=== PATIENT | female | born 1980 | race Caucasian/White ===

== ENCOUNTER 2016-12-20 06:49 | Day surgery (SDC) | payer OTHER ==
[~2016-12-20] VITALS: Ht 160 cm; Wt 112.0 kg
[2016-12-20] VITALS (16 sets, daily range): BP systolic 100–157; BP diastolic 54–93; PULSE 50–78; RESP 18–28; Ht 160 cm; Wt 112.0 kg
[~2016-12-20 06:49] MED LIST: FERR240T9; PREN1TAB82
[2016-12-20] MEDS ORDERED: CEFAZOLIN 1 GM/50 ML (PMX) 50 ML IVPB ONE ×2 (08:00→08:32)
[2016-12-20] MEDS ORDERED: SOD CHLORIDE 0.9% 1,000 ML IV SCH (08:00)
[2016-12-20] MEDS ORDERED: POLYMYXIN/BACITRACIN 1L IRRIG IRR ONE (08:00)
[2016-12-20] MEDS ORDERED: HEPARIN 1000 UNITS/ML 10 ML INJ ONE (08:33)
[2016-12-20] MEDS ORDERED: LIDOCAINE 1%/EPI 30 ML INJ INJ SCH (09:00)
[2016-12-20] MEDS ORDERED: DIPHENHYDRAMINE 50 MG INJ ONE (09:27)
[2016-12-20] MEDS ORDERED: MIDAZOLAM 1 MG/ML 2 ML INJ ONE (09:27)
[2016-12-20] MEDS ORDERED: FENTAnyl 50 MCG/ML VIAL ONE (09:27)
--- NOTE | 2016-12-20 11:03 | RADRPT ---
PROCEDURE: FLUOROSCOPIC AND ULTRASONOGRAPHIC-GUIDED PLACEMENT OF LEFT CHEST PORT. CLINICAL INDICATION: History of right breast cancer. Venous access for chemotherapy. TECHNIQUE: INTRAPROCEDURE MEDICATIONS: PB antibiotic solution 40 cc applied topically. 1 gram Ancef intravenous ly, intra-op. IV Versed and Fentanyl per protocol. TECHNIQUE: Informed consent was obtained. The procedure, risks, benefits, complications and alternat cassie were explained to the patient. Risks including bleeding, infection, and pneumothorax were expl ained. The patient understood and was willing to proceed. A procedural pause was performed. The patient's name, date of , and procedure to be performed w ere verified. The central line was inserted with all elements of maximal sterile barrier technique. All of the fol lowing were used: head covering, facial mask, sterile gown, sterile gloves, a large sterile sheet, h and hygiene, and 2% chlorhexidine for cutaneous antisepsis. The left neck and anterior/superior chest wall were prepped and draped in usual sterile fashion. Limited sonography of the left neck was then performed. Noted is a patent left internal jugular vein . Following the local injection of 1% lidocaine, the left internal jugular vein was punctured under so nographic guidance with a 20-gauge needle through which a 0.018 inch floppy tip guidewire was advanc ed into the superior vena cava with fluoroscopic guidance. The tract was dilated to 5 [place] and t he wire was then replaced with a 0.035 in Glidewire. Serial dilatation was then performed and a 7 F rench peel away sheath was introduced. A site just inferior to the clavicle in the superior anterior left chest wall was localized. One per cent lidocaine was used as local anesthesia. A transverse 3 cm incision was made utilizing a 15 blad e scalpel. Utilizing blunt dissection a subcutaneous pocket was created inferior to the incision. Th e cavity was flushed with approximately 40 cc of PB antibiotic solution. The catheter was tunneled underneath the skin from the newly created pocket to the puncture site in the neck. The central line catheter was pulled through the tract. The catheter was then advanced thr ough the sheath until the tip was positioned in the right atrium. The peel-away sheath was removed. The catheter was flushed and clamped. The catheter was then connected to the 6.6 [place] [employer] power port. The port was then placed into the pocket. Prior to closing the instrument and sponge count was verified and was correct. The subcutaneous tissue was closed with 3-0 Vicryl interrupted suture. The skin at the site of the pock et and in the neck was closed with 4-0 Vicryl suture in a running subcuticular technique. The port w as flushed with 2000 units of heparin in 2 cc utilizing a Cuello needle. The needle was removed. A dr essing was applied. The patient tolerated procedure well. COMPARISON: None. FINDINGS: Ultrasound images were recorded and stored in the patient's medical record. Final radiographic images demonstrate the tip of the catheter in the upper right atrium. A total of 0.5 minutes of fluoroscopy time was used. The ultrasound images demonstrate the needle entering th e jugular vein. IMPRESSION: 1. Successful ultrasonographic and fluoroscopic guided placement of left chest port. RPTAT: QQ .Santiago Hayward MD, MD Date Time Electronically viewed and signed by .Santiago Hayward MD, on 12/20/2016 11:03 .R/
--- NOTE | 2016-12-20 11:04 | RADRPT ---
PROCEDURE: Ultrasound guidance for placement of needle in left internal jugular vein. CLINICAL INDICATION: Venous access. TECHNIQUE: Prior to the procedure, informed consent was obtained. Risks including bleeding, infection, and pneu mothorax were explained to the patient. The patient understood and was willing to proceed. A procedu ral pause was performed. The patient's name, date of , and procedure to be performed were verif ied. The central line was inserted with all elements of maximal sterile barrier technique. All of th e following were used: head covering, facial mask, sterile gown, sterile gloves, a large sterile she et, hand hygiene, and 2% chlorhexidine for cutaneous antisepsis. The left neck and anterior/superi or chest wall was prepped and draped in usual sterile fashion. Limited sonography of the left neck was then performed. Noted is a patent left internal jugular vein . Ultrasound images were recorded and stored in the patient's medical record. Following the local injection of Xylocaine, the left internal jugular vein was punctured under sonog raphic guidance with a 20-gauge needle through which a 0.018 inch floppy tip guidewire was advanced into the superior vena cava. The patient tolerated the procedure well. The remainder of the proced ure was performed and dictated under separate cover. COMPARISON: None. FINDINGS: The ultrasound images demonstrate a patent left internal jugular vein. The subsequent images demons trate the needle entering the left internal jugular vein. IMPRESSION: 1. Ultrasound guidance for a needle placement in left internal jugular vein. RPTAT: QQ .Santiago Hayward MD, Date Time Electronically viewed and signed by .Santiago Hayward MD, on 12/20/2016 11:03 .R/
[2016-12-21] MEDS ORDERED: FURO-110 PO (19:51)
== END 2016-12-20 13:03 | disposition home or self-care (01) ==
LOC: SDS 06:49
PROVIDERS: ATTEND Internal Medicine Hematology & Oncology
DX: C50.911 Malignant neoplasm of unspecified site of right female breast (principal)
CPT/HCPCS: 36561; 76942; C1788; J0690; J1200; J1644; J2250; J3010; Z7610

== ENCOUNTER 2016-12-21 16:17 | Emergency (ER) | payer OTHER ==
[~2016-12-21] VITALS: Ht 162.6 cm; Wt 70.0 kg
[2016-12-21 16:35] VITALS: Ht 162.6 cm; Wt 70.0 kg
[2016-12-21 17:57] LABS: HEMATOCRIT 39.6 % (37.0-47.0); HEMOGLOBIN 13.6 g/dl (12.0-16.0); MEAN CORPUSCULAR HEMOGLOBIN 28.9 pg (29.0-33.0); MEAN CORPUSCULAR HGB CONC 34.2 g/dl (32.0-37.0); MEAN CORPUSCULAR VOLUME 84.5 fl (82.0-101.0); PLATELET COUNT 252 10^3/UL (140-440); RED BLOOD COUNT 4.69 10^6/ul (4.20-5.40); UNCORRECTED WBC 19.5 10^3/ul (4.8-10.8); WHITE BLOOD COUNT 19.5 10^3/ul (4.8-10.8)
[2016-12-21 17:59] LABS: CONDITION 1; LH ANALYZER COMMENTS 1; SUSPECT 1
[2016-12-21 18:19] LABS: LYMPHOCYTES # 0.2 10^3/ul (0.8-2.9); MONOCYTE # 0.2 10^3/ul (0.3-0.9); NEUTROPHIL # 18.7 10^3/ul (1.6-7.5)
[2016-12-21 18:21] LABS: PLATELET ESTIMATE PLT APPEAR ADEQUATE
[2016-12-21 18:22] LABS: POTASSIUM 3.9 mmol/L (3.5-5.1)
--- NOTE | 2016-12-21 18:24 | RADRPT ---
PROCEDURE: XR Chest. CLINICAL INDICATION: Chest pain TECHNIQUE: Chest AP portable. COMPARISON: 05/08/2013 FINDINGS: Left-sided Port-A-Cath. The mediastinal structures are unremarkable. There is mild cardiomegaly. There is pulmonary venous hypertension. The lung pérez are unremarkable. No consolidation is identified. The pleural spac es are unremarkable. The axial skeleton is unremarkable. IMPRESSION: Mild cardiomegaly Pulmonary venous hypertension RPTAT: HGDB .Ric Joshi MD, MD Date Time Electronically viewed and signed by .Ric Joshi MD, MD on 12/21/2016 18:24 .B/
[2016-12-21 18:25] LABS: CREATININE 0.45 mg/dl (0.44-1.00)
[2016-12-21 18:26] LABS: CALCIUM 8.5 mg/dl (8.4-10.2)
[2016-12-21] MEDS ORDERED: ONDANSETRON 4 MG INJ IV STA (18:32)
[2016-12-21 18:37] LABS: TROPONIN-I 0.013 ng/ml (0.00-0.12)
[2016-12-21] MEDS ORDERED: FUROSEMIDE 40 MG INJ IV STA (19:49)
[2016-12-21] MEDS ORDERED: FURO-110 PO (19:51)
[2016-12-21 20:07] VITALS: BP 101/63; PULSE 73; RESP 18
--- NOTE | 2016-12-21 22:01 | ERD ---
ER Documentation Chief Complaint Date/Time DATE: 12/21/16 TIME: 21:28 Chief Complaint allergic reaction after chemotherapy HPI 36-year-old female with a recent diagnosis of right breast cancer not amenable to surgery on chemotherapy presenting after her first round of chemo with possible reaction to the medication. The patient was sent by Dr. Judd, her oncologist. Her chemo regimen is a 2 chemo drug and 2 protein regimen. Per the patient she received entire infusion. After the infusion, she had flushing, chills, pressure in her chest, and felt like her feet were swelling. During the treatment, she was doing fine. She denies any associated fever. She received IV steroids, Benadryl, Demerol there and was sent to the ER for evaluation. Currently she denies any chest pain or shortness of breath. She denies any throat swelling. She feels some chills occasionally. ROS All systems reviewed and are negative except as per history of present illness. Medications Home Meds Active Scripts Furosemide* (Lasix*) 20 Mg Tablet, 20 MG PO DAILY, #3 TAB Prov:KIP RICHARDSON MD 12/21/16 Discontinued Reported Medications [None] No Conflict Check 04/20/15 Ferrous Gluconate (Iron) 1 Tab Tablet 08/20/10 Vit/Fe Fumarate/Fa ( Vitamin Tablet) 1 Tab Tablet 08/20/10 Allergies Allergies: Coded Allergies: hydrocodone (Verified Allergy, Severe, 12/21/16) PMhx/Soc History of Surgery: Yes (CHOLECYSTECTOMY, CSECTION X4) Anesthesia Reaction: No Hx Neurological Disorder: No Hx Respiratory Disorders: No Hx Cardiac Disorders: No Hx Psychiatric Problems: No Hx Miscellaneous Medical Probl: Yes (BREAST CA, OBESITY) Hx Alcohol Use: No Hx Substance Use: No Hx Tobacco Use: No Smoking Status: Unknown if ever smoked FmHx Family History: No diabetes Physical Exam Vitals Vital Signs Date Time Temp Pulse Resp B/P Pulse Ox O2 Delivery O2 Flow Rate FiO2 12/21/16 20:07 73 18 101/63 95 Room Air 12/21/16 16:35 97.8 84 20 140/74 94 Physical Exam Const: No apparent distress, nontoxic Head: Atraumatic Eyes: Normal Conjunctiva ENT: Normal External Ears, Nose and Mouth. No oropharyngeal swelling Neck: Full range of motion. No meningismus. No JVD Resp: Clear to auscultation bilaterally, no wheezing Cardio: Regular rate and rhythm, no murmurs Abd: Soft, non tender, non distended. Normal bowel sounds Skin: No petechiae or rashes Back: No midline or flank tenderness Ext: No cyanosis, mild swelling on the dorsum of the feet, nonpitting Neur: Awake and alert and oriented 3, strength and sensations intact in all 4 extremities, no facial asymmetry Psych: Normal Mood and Affect Result Diagram: 12/21/16174412/21/161744 Results 24 hrs Laboratory Tests Test 12/21/16 17:45 Anion Gap 18 Band Neutrophils % 2.0% Blood Morphology Comment Blood Urea Nitrogen 8mg/dl Calcium Level 8.5mg/dl Carbon Dioxide Level 22mmol/L Chloride Level 102mmol/L Creatinine 0.45mg/dl Glucose Level 199mg/dl Hematocrit 39.6% Hemoglobin 13.6g/dl Lymphocytes # 0.210^3/ul Lymphocytes % 1.0% Macrocytosis OCCASIONAL Mean Corpuscular Hemoglobin 28.9pg Mean Corpuscular Hemoglobin Concent 34.2g/dl Mean Corpuscular Volume 84.5fl Mean Platelet Volume 9.0fl Monocytes # 0.210^3/ul Monocytes % 1.0% Neutrophils # 18.710^3/ul Neutrophils % 96.0% Platelet Count 72304^3/UL Platelet Estimate PLT APPEAR ADEQUATE Potassium Level 3.9mmol/L Red Blood Count 4.6910^6/ul Red Cell Distribution Width 13.0% Sodium Level 138mmol/L Troponin I 0.013ng/ml White Blood Count 19.510^3/ul Current Medications Medications (Trade) Dose Ordered Sig/Shay Route PRN Reason Start Time Stop Time Status Last Admin Dose Admin Ondansetron HCl (Zofran Inj) 4 mg ONCE STAT IV 12/21/16 18:32 12/21/16 18:33 DC 12/21/16 18:58 Furosemide (Lasix) 20 mg ONCE STAT IV 12/21/16 19:49 12/21/16 19:50 DC 12/21/16 20:09 Procedures/MDM EKG: Rate/Rhythm: Normal Sinus Rhythm QRS, ST, T-waves: Nonspecific T-wave changes in the anterior leads, no evidence of acute ischemia Impression: No evidence of ischemia or arrhythmia Patient is presenting after reaction to her chemo medication. I spoke with her oncologist,Dr. Judd, who recommended some basic blood work and cardiac workup. On my exam there is no evidence of heart failure. I do not suspect anaphylaxis. Labs are only notable for leukocytosis, which her oncologist stated is expected after her initial chemotherapy session. Otherwise her EKG showed nonspecific changes and her troponin was within normal limits. Her x- ray showed evidence of some pulmonary vascular congestion, which she thinks is likely secondary to all the fluid she received with her chemo today. He recommended 1 dose of IV Lasix here and 2 more days of oral Lasix at home. She will follow up with the patient in 2 days in his clinic. Return precautions were given to the patient. She feels comfortable going home at this time and she feels comfortable with the plan. She will return for any worsening symptoms. Departure Diagnosis: Primary Impression: Adverse reaction to drug Encounter type: initial encounter Qualified Code: T88.7XXA - Adverse reaction to drug, initial encounter Condition: Stable Patient Instructions: Drug Reaction, Other Referrals: IGOR JUDD Additional Instructions: See Dr. Judd on Monday. Return to the ER for any worsening symptoms. KIP RICHARDSON MD Dec 21, 2016 21:43
== END 2016-12-21 20:15 | disposition home or self-care (01) ==
LOC: E/R 16:17
DX: R07.89 Other chest pain (principal); R40.2252 Coma scale, best verbal response, oriented, at arrival to emergency department; C50.911 Malignant neoplasm of unspecified site of right female breast; R40.2362 Coma scale, best motor response, obeys commands, at arrival to emergency department; R40.2142 Coma scale, eyes open, spontaneous, at arrival to emergency department
CPT/HCPCS: 36415; 71010; 80048; 84484; 85025; 93005; 96374; 96375; J1940; J2405; Z7502

== ENCOUNTER → 2017-01-27 | Outpatient (CLI) | payer OTHER ==
[~2017-01-27] MED LIST changes: -FERR240T9; +FURO-110 PO; -PREN1TAB82
--- NOTE | 2017-01-27 14:42 | RADRPT ---
Echocardiogram Report Patient Name: JEAN PIERRE ARMIJO Gender: Female Date: 1980 Study Date: 27-Jan-2017 Traffic Engineer: Jesse Mejia RDCS Location: Op Ref. Physician: IGOR JUDD Quality: Good Procedures: Transthoracic echocardiogram with complete 2D, M-Mode, and doppler examination. Indications: Evaluate Left Ventricular function. 2D/M Mode Doppler Measurement Value Normal Ranges Measurement Value Normal Ranges LVIDd 2D 5.3 3.5 - 5.6 cm AV Peak Sd 1.7 m/sec LVIDs 2D 2.9 2.1 - 4.1 cm AV Peak PG 11.3 mmHg LVPWd 2D 0.9 0.6 - 1.1 cm LVOT Peak Sd 1.2 m/sec IVSd 2D 1.0 0.6 - 1.1 cm LVOT Peak PG 5.6 mmHg AoR Diam 2D 2.5 2.0 - 3.7 cm MV E Peak Sd 0.9 m/sec EDV 2D 137.6 cm3 MV A Peak Sd 0.5 m/sec ESV 2D 24.6 cm3 MV E/A 1.7 LA Dimen 2D 3.4 2.3 - 4.0 cm MV Decel Time 266 msec MV Decel Morton 3 MV E/A 1.7 Findings Left Ventricle: Normal left ventricular systolic function. Normal left ventricular cavity size. Normal left ventricular wall thickness. Ejection fraction is visually estimated at 5560 %. Right Ventricle: Normal right ventricular size. Normal right ventricular systolic function. Left Atrium: The left atrium is normal in size. Right Atrium: The right atrium is normal in size. Mitral Valve: Normal appearance and function of the mitral valve with trace physiologic regurgitation. Aortic Valve: Normal appearance of the aortic valve. No significant aortic stenosis or insufficiency. Tricuspid Valve: Normal appearance and function of the tricuspid valve with trace physiologic regurgitation. Normal right ventricular systolic pressure. Pulmonic Valve: Normal pulmonic valve appearance. Pericardium: Normal pericardium with no significant pericardial effusion. Aorta: Normal aortic root. IVC: Normal size and normal respiratory collapse consistent with normal right atrial pressure. Conclusions 1.Normal left ventricular systolic function. Normal left ventricular cavity size. Normal left ventricular wall thickness. Ejection fraction is visually estimated at 55-60 %. 2.Normal appearance and function of the mitral valve with trace physiologic regurgitation. 3.Normal appearance and function of the tricuspid valve with trace physiologic regurgitation. Normal right ventricular systolic pressure. Electronically Signed By: He Bedolla 27-Jan-2017 14:41:37 -0800 Patient Name: JEAN PIERRE ARMIJO Study Date: 27-Jan-[id number]
== END | disposition home or self-care (01) ==
LOC: EKG 10:13
PROVIDERS: ATTEND Internal Medicine Hematology & Oncology
DX: C50.919 Malignant neoplasm of unspecified site of unspecified female breast (principal)
CPT/HCPCS: 93306

== ENCOUNTER 2017-05-08 14:56 | Outpatient (CLI) | payer OTHER ==
[~2017-05-08] VITALS: Ht 160 cm; Wt 99.1 kg
[2017-05-08 15:07] VITALS: BP 109/69; PULSE 61; RESP 18; Ht 160 cm; Wt 99.1 kg
--- NOTE | 2017-05-08 15:32 | PN ---
Date/Time of Note Date/Time of Note DATE: 05/08/17 TIME: 15:27 Outpatient Progress Note Chief Complaint Acute diverticulosis/CA breast/leukopenia HPI Acute diverticulosis/patient was recently hospitalized with acute diverticulosis , patient still has a pain in left upper quadrant, no fever chill, no blood in the stool, no mucus, patient's pain moderately severe, sometime 8 or 9 out of 10 , CA breast/patient has CA breast, patient getting chemotherapy, patient chemotherapy recently, Leukopenia/patient has leukopenia, patient was recently hospitalized, no rash, no fever or chill, Review of Systems Const: No Fever, no chills, no Wt. loss, no Fatigue, normal appetite, no diaphoresis., Eyes: No pain, no discharge, no redness, no visual change, no foreign body. ENT: No pain, no bleeding, no congestion, no sore throat, no dysphagia, no discharge or rhinitis. Lymph: No adenopathy, no tender nodes, no lymphedema. Resp: No SOB, no cough, no sputum, no wheezing, no chest pain. CV: No chest pain, no palpitaions, no MILES, no PND, no edema. GI: Normal appetite, left upper quadrant pain, no nausea, no vomiting, no diarrhea, no blood, no constipation. : No frequency, no urgency, no dysuria, no hematuria, no flank pain, no discharge, no bleeding. Musc: No bone/joint pain, no back pain, no neck pain, no knee pain, no restricted ROM. Skin: No rash, no skin lesions, no erythema, no laceration, no bruising, no pruritus. Alopecia secondary to chemotherapy, Neuro: No REZA, no dizziness, no syncope, no seizure, no focal-weakness. Endo: No polyuria, no polydypsia, no dry-skin, no temp-intolerance. Psych: No hallucinations, no depression, no anxiety, no suicidal ideation. Ext: No edema, no pain, no ulcer, no weakness. Physical Exam General Appearance: A 36 year-old female who appears well-developed, well- nourished, in no acute distress slightly obese,. HEENT: Head normocephalic, atraumatic. Pupils equal, round, reactive to light and accommodate. Sclerae are no jaundice. Nasal turbinates pink without erythema or nasal discharge. Mucous membranes pink and moist without lesions. Oropharynx clear without any exudate or discharge. NECK: Supple. Trachea midline, No thyromegaly, No cervical lymphadenopathy, No mass, No carotid bruits, No JVD, Carotid pulses 2+ bilaterally. PULMONARY: Clear to auscultaion bilaterally, No retractions, Chest expansion symmetric bilaterally, no rales, no ronchi, no dulness on percussion. CARDIAC: Normal SI and S2, Regular rate and rythm, no murmur, gallop, or rub. GASTROINTESTINAL: Abdomen is soft, left upper quadrant tenderness,, Non Rigid, No distention, Positive bowel sounds x4 quadrants, Liver normal. SKIN: Warm, dry, no rash, no bruise, no echmosis alopecia head secondary to chemotherapy, EXTREMITIES: Bilateral lower extremities normal, no edema, no phlabitus, pulse palpable, no contracture. MUSCULOSKELETAL: Spine Normal, Non-tender, Normal range of motion, No swelling, no deformity, no clubbing, or cyanosis, the patient has no edema to bilateral lower extremities, dorsalis pedis pulses palpable bilaterally. NEUROLOGIC: The patient is awake, alert, oriented, responding to yes/no questions appropriately, moving all extremities, cranial nerve intact, normal strenght, normal power, normal coordination, normal gait. Allergies Coded Allergies: hydrocodone (Verified Allergy, Severe, 12/21/16) PMH CA breast,/diverticulosis/depression/leukopenia Social Hx Noncontributory Family Hx Noncontributory Assessment/Plan Impression Acute diverticulosis/CA breast/leukopenia/history of depression Plan Patient has nausea off and on, patient has medication, patient better with the medication, patient still has abdominal pain, pain score 8 or 9 out of 10, [place] 5/325 #41 p.o. 3 times daily as needed for pain, Patient encouraged to follow with the primary care physician and oncologist, Patient education done, Medications Home Meds Active Scripts Furosemide* (Lasix*) 20 Mg Tablet, 20 MG PO DAILY, #3 TAB Prov:KIP RICHARDSON MD 12/21/16 FAY MOREIRA MD May 08, 2017 15:32
[2017-05-08] MEDS ORDERED: PROC10TA10 PO (15:52)
[2017-05-08] MEDS ORDERED: METR500T PO (15:52)
== END 2017-05-08 16:23 | disposition home or self-care (01) ==
LOC: DCC 14:56
PROVIDERS: ATTEND Internal Medicine
DX: K57.30 Diverticulosis of large intestine without perforation or abscess without bleeding (principal); C50.919 Malignant neoplasm of unspecified site of unspecified female breast

== ENCOUNTER 2017-05-25 11:43 | Outpatient (CLI) | payer OTHER ==
[~2017-05-25] VITALS: Ht 160 cm; Wt 99.8 kg
[~2017-05-25 11:43] MED LIST changes: -FURO-110 PO; +METR500T PO; +PROC10TA10 PO
[2017-05-25 11:51] VITALS: BP 104/55; PULSE 56; RESP 18; Ht 160 cm; Wt 99.8 kg
--- NOTE | 2017-05-25 12:17 | PN ---
Date/Time of Note Date/Time of Note DATE: 05/25/17 TIME: 12:14 Outpatient Progress Note Chief Complaint Abdominal pain/CA breast/ HPI Abdominal discomfort/patient had acute diverticulosis, patient was treated in the hospital, patient pain improved significantly, right now patient has minimal discomfort, patient did have pain yesterday, patient took Tylenol and Motrin, patient felt better, CA breast/patient had severe breast, patient is getting chemotherapy, no fever chill, no bruises, ecchymosis, Review of Systems Const: No Fever, no chills, no Wt. loss, no Fatigue, normal appetite, no diaphoresis. Eyes: No pain, no discharge, no redness, no visual change, no foreign body. ENT: No pain, no bleeding, no congestion, no sore throat, no dysphagia, no discharge or rhinitis. Lymph: No adenopathy, no tender nodes, no lymphedema. Resp: No SOB, no cough, no sputum, no wheezing, no chest pain. CV: No chest pain, no palpitaions, no MILES, no PND, no edema. GI: Normal appetite, minimal abdominal pain, no nausea, no vomiting, no diarrhea , no blood, no constipation. No abdominal distention, : No frequency, no urgency, no dysuria, no hematuria, no flank pain, no discharge, no bleeding. Musc: No bone/joint pain, no back pain, no neck pain, no knee pain, no restricted ROM. Skin: No rash, no skin lesions, no erythema, no laceration, no bruising, no pruritus alopecia,. Neuro: No REZA, no dizziness, no syncope, no seizure, no focal-weakness. Endo: No polyuria, no polydypsia, no dry-skin, no temp-intolerance. Psych: No hallucinations, no depression, no anxiety, no suicidal ideation. Ext: No edema, no pain, no ulcer, no weakness. Physical Exam Vital Signs Date Time Temp Pulse Resp B/P Pulse Ox O2 Delivery O2 Flow Rate FiO2 05/25/17 11:51 98.0 56 18 104/55 93 Room Air General Appearance: A 36 year-old female who appears well-developed, well- nourished, in no acute distress. HEENT: Head normocephalic, atraumatic. Pupils equal, round, reactive to light and accommodate. Sclerae are no jaundice. Nasal turbinates pink without erythema or nasal discharge. Mucous membranes pink and moist without lesions. Oropharynx clear without any exudate or discharge. NECK: Supple. Trachea midline, No thyromegaly, No cervical lymphadenopathy, No mass, No carotid bruits, No JVD, Carotid pulses 2+ bilaterally. PULMONARY: Clear to auscultaion bilaterally, No retractions, Chest expansion symmetric bilaterally, no rales, no ronchi, no dulness on percussion. CARDIAC: Normal SI and S2, Regular rate and rythm, no murmur, gallop, or rub. GASTROINTESTINAL: Abdomen is soft, non-tender patient did have some discomfort yesterday, at present no tenderness,, Non Rigid, No distention, Positive bowel sounds x4 quadrants, Liver normal. SKIN: Warm, dry, no rash, no bruise, no echmosis. Alopecia on the head secondary to chemotherapy, EXTREMITIES: Bilateral lower extremities normal, no edema, no phlabitus, pulse palpable, no contracture. MUSCULOSKELETAL: Spine Normal, Non-tender, Normal range of motion, No swelling, no deformity, no clubbing, or cyanosis, the patient has no edema to bilateral lower extremities, dorsalis pedis pulses palpable bilaterally. NEUROLOGIC: The patient is awake, alert, oriented, responding to yes/no questions appropriately, moving all extremities, cranial nerve intact, normal strenght, normal power, normal coordination, normal gait. Allergies Coded Allergies: hydrocodone (Verified Allergy, Severe, 12/21/16) PMH No change Social Hx No change Family Hx No change Assessment/Plan Impression Abdominal discomfort secondary diverticulosis improved/CA breast Plan Patient had a chemotherapy yesterday, patient did have abdominal discomfort yesterday, patient did take Tylenol and Motrin and patient had a relief, Patient allergic to hy hydrocodone patient did not refill the prescription, Patient encouraged to follow with the oncologist and primary care physician, and if any fever to let them know, Medications Home Meds Discontinued Reported Medications Prochlorperazine* (Prochlorperazine*) 10 Mg Tablet, 10 MG PO Q6H Y for NAUSEA, TAB 05/08/17 Metronidazole* (Flagyl*) 500 Mg Tablet, 500 MG PO TID, TAB 05/08/17 FAY MOREIRA MD May 25, 2017 12:17
== END 2017-05-25 17:00 | disposition home or self-care (01) ==
LOC: DCC 11:43
PROVIDERS: ATTEND Internal Medicine
DX: R10.9 Unspecified abdominal pain (principal); K57.90 Diverticulosis of intestine, part unspecified, without perforation or abscess without bleeding; C50.919 Malignant neoplasm of unspecified site of unspecified female breast; Z79.899 Other long term (current) drug therapy

== ENCOUNTER 2017-07-28 10:32 | Inpatient (IN) | payer OTHER ==
[~2017-07-28] VITALS: Ht 160 cm; Wt 100.4 kg
[2017-07-28] VITALS (21 sets, daily range): BP systolic 96–140; BP diastolic 46–78; PULSE 55–89; RESP 13–23; Ht 160 cm; Wt 100.4 kg
[~2017-07-28 10:32] MED LIST changes: +CEFAZOLIN 2 GM/50 ML (PMX) 50 ML IVPB SCH; -METR500T PO; -PROC10TA10 PO; +SOD CHLORIDE 0.9% 1,000 ML IV SCH
[2017-07-28 13:23] LABS: BASOPHILS % 0.3 % (0.0-2.0); EOSINOPHILS # 0.1 10^3/ul (0.0-0.5); EOSINOPHILS % 0.8 % (0.0-7.0); HEMATOCRIT 35.4 % (37.0-47.0); LYMPHOCYTES # 2.5 10^3/ul (0.8-2.9); LYMPHOCYTES % 38.9 % (15.0-51.0); MEAN CORPUSCULAR HEMOGLOBIN 28.8 pg (29.0-33.0); MEAN CORPUSCULAR HGB CONC 33.9 g/dl (32.0-37.0); MEAN CORPUSCULAR VOLUME 85.1 fl (82.0-101.0); MEAN PLATELET VOLUME 10.7 fl (7.4-10.4); MONOCYTE # 0.3 10^3/ul (0.3-0.9); MONOCYTES % 4.6 % (0.0-11.0); NEUTROPHILS % 55.2 % (39.0-77.0); PLATELET COUNT 217 10^3/UL (140-415); RED BLOOD COUNT 4.16 10^6/ul (4.20-5.40); RED CELL DISTRIBUTION WIDTH 13.8 % (11.5-14.5); WHITE BLOOD COUNT 6.4 10^3/ul (4.8-10.8)
[2017-07-28 13:49] LABS: INR 1.01; PROTIME 13.3 Sec (12.2-14.2)
[2017-07-28 13:50] LABS: PARTIAL THROMBOPLASTIN TIME 30.8 Sec (25.0-35.0)
[2017-07-28 13:53] LABS: ALBUMIN 4.2 g/dl (3.3-4.9); ALBUMIN/GLOBULIN RATIO 1.2; BILIRUBIN,INDIRECT 0.8 mg/dl (0-1.1); BILIRUBIN,TOTAL 0.8 mg/dl (0.2-1.3); TOTAL PROTEIN 7.7 g/dl (6.1-8.1)
[2017-07-28 13:57] LABS: CREATININE 0.55 mg/dl (0.44-1.00)
[2017-07-28] MEDS ORDERED: PROPOFOL 40 ML ONE (14:48)
[2017-07-28] MEDS ORDERED: ONDANSETRON 4 MG INJ ONE ×2 (15:09→16:32)
[2017-07-28] MEDS ORDERED: CEFAZOLIN 1 GM INJ ONE (15:09)
[2017-07-28] MEDS ORDERED: DEXAMETHASONE 4 MG/ML 1 ML INJ ONE (15:09)
[2017-07-28] MEDS ORDERED: PROPOFOL 20 ML ONE ×2 (16:03)
[2017-07-28] MEDS ORDERED: LIDOCAINE 2% (SDV) 5 ML INJ ONE (16:03)
[2017-07-28] MEDS ORDERED: hydrALAzine 20 MG INJ IV PRN (16:30)
[2017-07-28] MEDS ORDERED: LABETALOL HCL 20MG INJ IV PRN (16:30)
[2017-07-28] MEDS ORDERED: DIPHENHYDRAMINE 50 MG INJ IV PRN (16:30)
[2017-07-28] MEDS ORDERED: ONDANSETRON 4 MG INJ IV PRN ×2 (16:30→17:00)
[2017-07-28] MEDS ORDERED: HYDROmorphONE (0.2 MG/ML) 10ML SYG IV PRN ×2 (16:30)
[2017-07-28] MEDS ORDERED: OXYCODONE/ACETAMINOPHEN (5/325) TAB PO PRN ×2 (16:30)
[2017-07-28] MEDS ORDERED: FENTAnyl 50 MCG/ML VIAL IV PRN ×3 (16:30)
[2017-07-28] MEDS ORDERED: METOCLOPRAMIDE 10 MG INJ IV PRN (16:30)
[2017-07-28] MEDS ORDERED: KETOROLAC 30 MG INJ IV PRN ×2 (16:30→23:30)
[2017-07-28] MEDS ORDERED: EPHEDrine SULFATE 50 MG/5 ML SYG IV PRN (16:30)
[2017-07-28] MEDS ORDERED: MEPERIDINE 25 MG INJ IV PRN (16:30)
[2017-07-28] MEDS ORDERED: HYDROmorphONE (0.2 MG/ML) 10ML SYG IV ONE (16:32)
--- NOTE | 2017-07-28 16:37 | SIPON ---
Date/Time of Note Date/Time of Note DATE: 07/28/17 TIME: 16:36 Operative Report Preoperative Diagnosis Right breast cancer Postoperative Diagnosis Same Operation/Procedure Performed Right modified radical mastectomy Surgeon: DENNIS BUTTERFIELD MD ex assistant/program director: LADARIUS PAVON MD Anesthesia Type: general Estimated Blood Loss: 10 - 50 ml's Transfusion Required: no Specimens Right breast and axillary contents Grafts/Implants: none Complications: no DENNIS BUTTERFIELD MD Jul 28, 2017 16:37
[2017-07-28] MEDS: HYDROmorphONE (0.2 MG/ML) 10ML SYG IV PRN ×2 (16:52→18:04)
[2017-07-28] MEDS ORDERED: ACETAMINOPHEN 1000MG/100ML IV 100 ML IVPB PRN (17:00)
--- NOTE | 2017-07-28 18:43 | OPR ---
DATE OF OPERATION: 07/28/2017 PREOPERATIVE DIAGNOSIS: Locally advanced invasive cancer of the right breast. POSTOPERATIVE DIAGNOSIS: Locally advanced invasive cancer of the right breast. OPERATION PERFORMED: Right modified radical mastectomy. ANESTHESIA: General. ANESTHESIOLOGIST: Dr. Guzman. SURGEON: Dr. Brian Augustine. SPOOL FIXER: Dr. Sandoval. INDICATIONS FOR PROCEDURE: Patient is a very unfortunate 36-year- old female, who presented with greater in 2 cm invasive cancer of her right breast. She was HER-2 AMOL positive. She was therefore counseled as to the benefit of neoadjuvant chemotherapy. She completed her neoadjuvant chemotherapy and evaluated with a post treatment mammogram not mammogram was reviewed with attending radiologist Dr. Mateus Sarmiento is appeared to be significant residual calcifications a very large scan and he recommended modified radical mastectomy. The patient was counseled in that fashion. She agreed and consented and was scheduled for surgery. OPERATIVE PROCEDURE: Patient was brought to the operating theater where she was placed under general endotracheal tube anesthesia. The right breast and axillary region were prepped and draped in usual sterile fashion. A planned elliptical incision was demarcated with marking pen around the nipple areolar complex including portion of the skin overlying the breast. It was carried out with 15 blade scalpel. Subcutaneous tissue was then dissected with cautery. The skin edges were elevated with skin hooks and skin flaps were then created with cautery, first superiorly to the clavicle, then medially to the sternal border, inferiorly to the inframammary fold and laterally to the latissimus dorsi muscle was identified throughout its course. Mastectomy then took place from medial to lateral using cautery at the border of the pectoralis major muscle. The pectoralis minor muscle was identified. The clavipectoral fascia was incised with blunt dissection along the chest wall. The long thoracic nerve was identified and kept out of harm's way. More superiorly, the axillary vein was identified, dissected from medial to lateral. The thoracodorsal neurovascular bundle was identified and dissected throughout its course. Node bearing tissue between the 2 nerves was then harvested using the LigaSure device. Final connective tissue attachments to the latissimus dorsi muscle were transected with cautery. Specimen was then removed, oriented, and sent for permanent pathologic analysis. The wound was irrigated. Minimal bleeding was controlled with cautery. Two number 10 flat Marty-Childers drains were then brought through the right mid axillary line. One was cut to size and laid within the axilla. The other was laid over the pectoralis major muscle. Both drains were secured in place with 2-0 nylon suture in the standard fashion. The skin incision was then reapproximated with skin sherry. Patient tolerated procedure well. ESTIMATED BLOOD LOSS: Was approximately 40 cc. COMPLICATIONS: There were no complications. DISPOSITION: The patient was transported in stable condition to the recovery room. Dictated By: Brian Augustine MD /[email or web address] /Document#: [id number]
[2017-07-28] MEDS: D5W-0.45 NACL + KCL 20 MEQ 1,000 ML IV SCH (21:00)
--- NOTE | 2017-07-29 00:17 | HP ---
DATE OF ADMISSION: 07/28/2017 CHIEF COMPLAINT AND HISTORY OF PRESENT ILLNESS: The patient is a 35-year-old white female, who was seen by Dr. Augustine as an outpatient for locally advanced invasive cancer of the right breast. The patient was brought into the hospital today and underwent right modified radical mastectomy. Patient has significant postoperative pain, and therefore, she is being admitted for further evaluation and management. The patient denied any shortness of breath. No reported abdominal pain. No reported vomiting. No reported fever or chills. Does not report any focal weakness. No reported nausea. PAST MEDICAL HISTORY: Patient is status post laparoscopic cholecystectomy by Dr. Bravo in 2014. Patient is also status post chemotherapy by Dr. Renteria. Status post C section. ALLERGIES: HYDROCODONE. SOCIAL HISTORY: No smoking. No alcohol. FAMILY HISTORY: Noncontributory. PHYSICAL EXAMINATION: GENERAL APPEARANCE: The patient is conscious, awake, alert. VITAL SIGNS: Temperature 98, pulse 74, respiration 22, blood pressure 159/77, O2 sat 96 percent on room air. HEENT: No eye discharge or redness. Extraocular movement intact. Oropharynx clear. NECK: No mass. CHEST: Fairly clear. CARDIAC: Normal. No murmur. ABDOMEN: Soft, nondistended, nontender. EXTREMITIES: No leg edema. NEURO: Patient is awake, alert, with no gross focal deficit. LAB: This morning, WBC 6.4, hemoglobin 12, platelet 217. Sodium 142, potassium 4, BUN 10, creatinine 0.5, glucose 87. Liver enzymes normal. IMPRESSION: Right breast cancer, status post chemotherapy, and today she underwent right modified radical mastectomy. PLAN: The patient admitted on medical floor. Patient was started on clear liquid diet, which will be advanced as tolerated. The patient will be given IV fluids, IV Tylenol and IV Toradol for pain control. We will give IV Zofran for nausea and vomiting, SCD for DVT prophylaxis and due to use of Toradol, we will add Pepcid for GI prophylaxis. Dictated By: Hugh Mays MD /[email or web address] /Document#: [id number]
[2017-07-29 00:29] VITALS: BP 107/56; RESP 18
[2017-07-29] MEDS: D5W-0.45 NACL + KCL 20 MEQ 1,000 ML IV SCH ×3 (01:40→17:00)
[2017-07-29 07:56] VITALS: BP 100/55; RESP 18
[2017-07-29] MEDS ORDERED: FAMOTIDINE 20 MG TAB PO SCH (09:00)
--- NOTE | 2017-07-29 09:39 | PN ---
Date/Time of Note Date/Time of Note DATE: 07/29/17 TIME: 09:36 Assessment/Plan VTE Prophylaxis VTE Prophylaxis Intervention: ambulation Lines/Catheters IV Catheter Type (from Nrs): Peripheral IV Assessment/Plan Assessment/Plan It is status post right modified radical mastectomy. Stop day #1. Stable implants both functioning color is serosanguineous. Plan, patient can be discharged home today instruction will be given by the nurse to the patient the care of the Marty-Childers drains and how to manage them and how to record the drainage every night on a piece of paper. Patient to call Dr. Rivera office on Monday and make an appointment for follow-up. Prescription written and given by the medical billing manager. Subjective 24 Hr Interval Summary Free Text/Dictation Postop day #1 status post right modified radical mastectomy No complain minimal pain. As tolerated diet. Exam/Review of Systems Vital Signs Vitals Vital Signs Date Time Temp Pulse Resp B/P Pulse Ox O2 Delivery O2 Flow Rate FiO2 07/29/17 07:56 98.1 65 18 100/55 97 07/28/17 22:10 Room Air Intake and Output 07/28/17 07/28/17 07/29/17 15:00 23:00 07:00 Intake Total 950 ml 615 ml Output Total 500 ml 850 ml Balance 450 ml -235 ml Exam Awake alert laying down in the bed. Vital signs stable no fever. Marty- Childers #1 and 2 both together have drained 75 cc since operation color is serosanguineous. He can move right arm and hand in full range. Dressing is intact Timothy bandage is not too tight. Results Result Diagram: 07/28/17 1305 07/28/17 1305 Results 24 hrs Laboratory Tests Test 07/28/17 13:05 White Blood Count 6.4 # Red Blood Count 4.16 L Hemoglobin 12.0 Hematocrit 35.4 L Mean Corpuscular Volume 85.1 Mean Corpuscular Hemoglobin 28.8 L Mean Corpuscular Hemoglobin Concent 33.9 Red Cell Distribution Width 13.8 Platelet Count 217 Mean Platelet Volume 10.7 H Neutrophils % 55.2 Lymphocytes % 38.9 Monocytes % 4.6 Eosinophils % 0.8 Basophils % 0.3 Nucleated Red Blood Cells % 0.0 Neutrophils # (Manual) 3.5 Lymphocytes # 2.5 Monocytes # 0.3 Eosinophils # 0.1 Basophils # 0.0 Nucleated Red Blood Cells # 0.0 Prothrombin Time 13.3 Prothrombin Time Ratio 1.0 INR International Normalized Ratio 1.01 Activated Partial Thromboplast Time 30.8 Sodium Level 142 Potassium Level 4.0 Chloride Level 108 Carbon Dioxide Level 26 Anion Gap 12 Blood Urea Nitrogen 10 Creatinine 0.55 Glucose Level 87 Calcium Level 9.0 Total Bilirubin 0.8 Direct Bilirubin 0.00 Indirect Bilirubin 0.8 Aspartate Amino Transf (AST/SGOT) 25 Alanine Aminotransferase (ALT/SGPT) 36 Alkaline Phosphatase 62 Total Protein 7.7 Albumin 4.2 Globulin 3.50 H Albumin/Globulin Ratio 1.20 Medications Medications Current Medications Ondansetron HCl 4 mg 4 mg Q6H PRN IV NAUSEA AND/OR VOMITING; Start 07/28/17 at 17:00 Potassium Chloride/Dextrose/ Sod Cl 1,000 ml @ 125 mls/hr Q8H IV Last administered on 07/29/17 01:40; Admin Dose 125 MLS/HR; Start 07/28/17 at 17:00 Acetaminophen (Ofirmev 1000mg/ 100ml Iv) 100 ml @ 400 mls/hr Q6H PRN IVPB PAIN ; Start 07/28/17 at 17:00 Ketorolac Tromethamine (Toradol) 30 mg Q6H PRN IV PAIN; Start 07/28/17 at 23:30 ; Stop 07/31/17 at 23:29 Famotidine (Pepcid) 20 mg BID PO Last administered on 07/29/17 09:27; Admin Dose 20 MG; Start 07/29/17 at 09:00 GLORIA HOOKER MD Jul 29, 2017 09:39
[2017-07-29 15:14] VITALS: BP 102/53; RESP 18
--- NOTE | 2017-07-29 17:01 | PDOCDIS ---
Discharge Instructions CONDITION Patient Condition: Stable HOME CARE INSTRUCTIONS: Diet Instructions: Regular ACTIVITY: Activity Restrictions: Slowly Increase Activity Rest between Activity Avoid heavy lifting Bathing Restrictions: KALHIL Verdin Jul 29, 2017 17:01
[2017-07-29] MEDS ORDERED: TRAM50TA2 PO (17:02)
[2017-07-29] MEDS ORDERED: FAMO20TA18 PO (17:02)
== END 2017-07-29 18:24 | disposition home or self-care (01) | DRG 583 ==
LOC: REC 10:32 → MS1 20:30
PROVIDERS: ADMIT Surgery Surgical Oncology; ATTEND Surgery Surgical Oncology
PROC: 0HTT0ZZ Resection of Right Breast, Open Approach (ICD-10-PCS; principal; 2017-07-28 16:00)
DX: C50.911 Malignant neoplasm of unspecified site of right female breast (principal); E66.01 Morbid (severe) obesity due to excess calories; I10 Essential (primary) hypertension; Z68.39 Body mass index [BMI] 39.0-39.9, adult
CPT/HCPCS: 80053; 84703; 85025; 85610; 85730; 88307; J0690; J1100; J1170; J1885; J2405; J2765; J3010; J3480